=== PATIENT | male | born 1985 | race African-American/Black ===

== ENCOUNTER 2020-04-14 20:14 | Emergency (ER) | payer SELFPAY ==
--- NOTE | 2020-04-14 20:36 | PDOC ---
Rapid Medical Evaluation Chief Complaint: Injury Time Seen by Provider: 04/14/20 20:35 Medical Evaluation: 04/14/20 20:35 CC: rt hand injury while training . pain to 2 nd knuckle Exam: mild edema and tender to rt 2nd mcp. from of flexion/extension Plan: xray Discharge Disposition - Diagnosis Hand injury - Referrals - Patient Instructions - Post Discharge Activity
[2020-04-14 20:38] VITALS: BP 138/75; PULSE 70; TEMP 98.7; BMI 20.3
--- NOTE | 2020-04-14 20:54 | PDOC ---
History of Present Illness - General Chief Complaint: Injury Stated Complaint: POSS RW FRACTURE Time Seen by Provider: 04/14/20 20:35 History Source: Patient Exam Limitations: No Limitations - History of Present Illness Initial Comments: 04/14/20 20:51 HISTORY OF PRESENT ILLNESS: 34-year-old male denies medical history presents emergency department for evaluation of pain to the right hands which started on Thursday while he was boxing. Patient reports he was working on his boxing technique by punching pads and sustained a pain on his hand as well as a prescription to his finger at the same time. Patient reports the swelling got worse initially and then slowly subsided. Patient is concerned that is been 5 days and has not returned to baseline. No recent travel or sick contacts. PAST MEDICAL HISTORY: Denies past medical history SURGICAL HISTORY: Denies ALLERGIES: No known drug allergies REVIEW OF SYSTEMS General/Constitutional: Denies fever or chills. Denies weakness, weight change. HEENT: Denies change in vision. Denies ear pain or discharge. Denies sore throat. Cardiovascular: Denies chest pain or shortness of breath. Respiratory: Denies cough, wheezing, or hemoptysis. Gastrointestinal: Denies nausea, vomiting, diarrhea or constipation. Denies rectal bleeding. Genitourinary: Denies dysuria, frequency, or change in urination. Musculoskeletal: See HPI Skin and breasts: Denies rash or easy bruising. Neurologic: Denies headache, vertigo, loss of consciousness, or loss of sensation. Psychiatric: Denies depression or anxiety. Endocrine: Denies increased thirst. Denies abnormal weight change. Hematologic/Lymphatic: Denies anemia, easy bleeding, or history of blood clots. Allergic/Immunologic: Denies hives or skin allergy. Denies latex allergy. PHYSICAL EXAM General Appearance: Well-appearing, appropriately dressed. No apparent distress, no intoxication. Musculoskeletal/Extremities: Full flexion extension of all digits on the right hand. No malrotation is observed. No bony tenderness, deformity, crepitus or step-off is present upon palpation of the meta carpal bones. Erythema and swelling present over the first MCP of the right hand. Superficial abrasion present in the same area of swelling. Integumentary: Erythema present over the first MTP of the right hand. Abrasion present over the proximal phalanx of the index finger of the right hand. Past History - Medical History Allergies/Adverse Reactions: Allergies Allergy/AdvReac Type Severity Reaction Status Date / Time Sulfa (Sulfonamide Allergy Verified 04/14/20 20:38 Antibiotics) Home Medications: Ambulatory Orders Clindamycin HCl 450 mg PO TID #63 capsule 04/14/20 COPD: No - Psycho-Social/Smoking History Smoking History: Current every day smoker Information on smoking cessation initiated: No - Substance Abuse Hx (Audit-C & DAST Scrn) How often the patient has a drink containing alcohol: Never Score: In Men: 4 or > Positive; In Women: 3 or > Positive: 0 Screen Result (Pos requires Nsg. Audit-10AR): Negative In the last yr the pt used illegal drug/Rx for NonMed reason: Yes Score: Yes response is considered Positive: 1 Screen Result (Positive result requires Nsg. DAST-10): Positive *Physical Exam - Vital Signs Last Vital Signs Temp Pulse Resp BP Pulse Ox 98.7 F 70 18 138/75 97 04/14/20 20:35 04/14/20 20:35 04/14/20 20:35 04/14/20 20:35 04/14/20 20:35 Medical Decision Making - Medical Decision Making 04/14/20 20:53 A/P: 34-year-old male with right hand pain status post boxing injury which occurred on 04/11 X-ray of the right hand Boostrix As patient has no bony tenderness, deformity or malrotation of the fingers this is likely overlying cellulitis due to the abrasion in that same area. Reassess 04/14/20 20:59 X-rays read by me: No acute fractures or dislocations present. Discharge home with prescription for clindamycin 450 mg 3 times a day for the next 7 days. I discussed the physical exam findings, ancillary test results and final diagnoses with the patient. I answered all of the patient's questions. The patient was satisfied with the care received and felt comfortable with the discharge plan and treatment plan. The patient will call their primary care physician within 24 hours to arrange follow-up and will return to the Emergency Department with any new, persistent or worsening symptoms. Portions of this note have been documented using voice recognition software. As a result, errors may occur in the neuropsychology medical consultant process. Effort has been made to correct all grammatical and neuropsychology medical consultant error, but some may have been missed which may produce sporadic inaccurate neuropsychology medical consultant or nonsensical phrases. Discharge - Discharge Information Problems reviewed: Yes Clinical Impression/Diagnosis: Cellulitis Qualifiers: Site of cellulitis: extremity Site of cellulitis of extremity: upper extremity Laterality: right Qualified Code(s): L03.113 - Cellulitis of right upper limb Condition: Stable Disposition: HOME - Admission No - Additional Discharge Information Prescriptions: Clindamycin HCl 450 mg PO TID #63 capsule - Follow up/Referral - Patient Discharge Instructions Additional Instructions: Take clindamycin 450 mg 3 times a day for the next 7 days Finish all antibiotics even if you feel better. Apply warm compresses to your ear as needed. Stop boxing until your hand heals. Your tetanus immunization was updated today and is good for the next 10 years. Return to emergency department for any worsening pain, drainage or any other concerns. Thank you very much for choosing us to provide your emergent health care needs. - Post Discharge Activity
[2020-04-14] MEDS ORDERED: DIPHTH,PERTUSS(ACELL),TET 0.5 ML DISP.SYRIN IM ONE (21:15)
== END 2020-04-14 21:27 | disposition home or self-care (01) ==
LOC: JERFT 20:14
DX: L03.113 Cellulitis of right upper limb (principal)
CPT/HCPCS: 73130-TC-RT-FY; 99283-25